=== PATIENT | male | born 2005 | race Two or more races ===

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

== ENCOUNTER → 2023-04-15 15:44 | Outpatient (BNVA) | payer BC, MEDICAID, SELFPAY | PROVIDERS: Visit Provider Registered Nurse Neonatal Intensive Care | DX: R50.9 Fever, unspecified (principal); Z20.822 Contact with and (suspected) exposure to COVID-19 | CPT/HCPCS: 87426 ==

== ENCOUNTER 2025-08-04 11:27 | Outpatient (CLI) | payer BC, MEDICAID, SELFPAY ==
--- NOTE | 2025-08-04 11:32 | XR_ITS ---
WS: [email or web address] Exam: XR thoracic spine 3V* [id number] Date/Time of Exam: 08/04/2025 11:47 AM Reason For Exam: increased back pain No fracture or malalignment. There is dextroscoliosis of the lower T-spine. There is fusion of the T-spine from T10-T12 with pedicle screws and posterior rods. The fusion extends caudally into the lumbar region as previously described. Normal paraspinal soft tissues. IMPRESSION1. No fracture or malalignment. Mild lower thoracic scoliosis with fusion hardware.
--- NOTE | 2025-08-04 11:32 | XR_ITS ---
WS: [email or web address] Exam: XR lumbar spine 2-3V* [id number] Date/Time of Exam: 08/04/2025 11:47 AM Reason For Exam: increased back pain DLP: Comparison 07/30/2013. There is posterior fusion of the spine from T10-L4 with pedicle screws and posterior rods. The fusion is ossified and stable in appearance. There is angular levoscoliosis of the lumbar spine. No sign of hardware failure. Developmental anomalies of the L5 and S1. XR/XR lumbar spine 2-3V* [id number] IMPRESSION: 1. Stable appearing spinal fusion from T10-L4. The fusion has ossified. No hard novoa complication identified. 2. 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 Angular levoscol iosis of the lumbar spine.
== END 2025-08-04 11:28 | disposition home or self-care (01) ==
LOC: RAD 11:28
PROVIDERS: PCP Nurse Practitioner; Visit Provider Nurse Practitioner
DX: M54.9 Dorsalgia, unspecified (principal); Z98.890 Other specified postprocedural states; M41.84 Other forms of scoliosis, thoracic region; M41.86 Other forms of scoliosis, lumbar region; Z98.1 Arthrodesis status
CPT/HCPCS: 72072; 72100

== ENCOUNTER → 2025-08-16 07:51 | Outpatient (BNVA) | payer BC, MEDICAID, SELFPAY | PROVIDERS: PCP Nurse Practitioner; Visit Provider Orthopaedic Surgery | DX: M54.9 Dorsalgia, unspecified (principal); Z51.89 Encounter for other specified aftercare | CPT/HCPCS: 72110 ==